=== PATIENT | female | born 1980 | race Caucasian/White ===

== ENCOUNTER 2017-07-25 11:39 | Emergency (ER) | payer OTHER ==
[~2017-07-25] VITALS: Ht 180.3 cm; Wt 108.4 kg
[~2017-07-25 11:39] MED LIST: ALPRAZOLAM0.25 M2 PO; AMOXICILLIN500 MG PO; AUGMENTIN 875-875 MG PO; AUGMENTIN 875875 MG PO; CIPROFLOXACIN500 MG PO; CLEOCIN HCL150 MG PO; Carafate1 GM/10 ML PO; DELTASONE20 M1 PO; FLEXERIL10 MG PO; FLONASE 0.05% 121 EA NAS; HYDROCORTISONE30 G2 T; KENALOG 0.1%80 GM PO; NAPROSYN500 MG PO; NAPROXEN500 MG PO; NKHM; OCUFLOX 0.3% 5 M5 ML OT; TORADOL10 MG PO; TRAMADOL HCL50 MG PO; ULTRAM50 MG PO; ZANTAC 150150 MG PO; ZITHROMAX Z PA250 MG PO; ZITHROMAX250 MG PO
[2017-07-25 11:54] VITALS: BP 140/85
[2017-07-25] MEDS ORDERED: AMOXICILLIN500 M2 PO (12:18)
== END 2017-07-25 13:07 | disposition home or self-care (01) ==
LOC: ED 11:39
DX: H66.92 Otitis media, unspecified, left ear (principal); R51 Headache; Z98.51 Tubal ligation status; Z98.890 Other specified postprocedural states; Z79.899 Other long term (current) drug therapy; Z88.5 Allergy status to narcotic agent; Z91.013 Allergy to seafood

== ENCOUNTER 2017-09-13 16:55 | Emergency (ER) | payer OTHER ==
[~2017-09-13] VITALS: Ht 180.3 cm; Wt 109.8 kg
[~2017-09-13 16:55] MED LIST changes: +AMOXICILLIN500 M2 PO
[2017-09-13 17:39] LABS: BILIRUBIN NEGATIVE (NEGATIVE); BLOOD NEGATIVE (NEGATIVE); CLARITY CLEAR (CLEAR); COLOR YELLOW (YELLOW); GLUCOSE NEGATIVE (NEGATIVE); KETONE NEGATIVE (NEGATIVE); LEUKO ESTERASE NEGATIVE (NEGATIVE); NITRITE NEGATIVE (NEGATIVE); PH 5.5 (5.0-9.0); SPECIFIC GRAVITY <= 1.005 (1.005-1.030); UROBILINOGEN 0.2 E.U./dl (0.2-1.0)
[2017-09-13 17:53] LABS: BACTERIA TRACE; RBC 0-2 rbc/hpf (0-2)
[2017-09-13 18:08] LABS: BASO % 0.4 % (0.0-1.0); EOS # 0.2 10*3/uL (0.0-0.4); EOS % 2.9 % (1.0-4.0); HEMOGLOBIN 14.1 g/dl (12.0-16.0); LYMPH # 1.9 10*3/uL (1.3-4.4); LYMPH % 23.7 % (27.0-41.0); MEAN CELL VOLUME 88.7 fl (81.0-99.0); MEAN CORPUSCULAR HGB 30.5 pg (27.0-31.0); MEAN CORPUSCULAR HGB CONC 34.4 g/dl (33.0-37.0); MEAN PLATELET VOLUME 9.7 fl (9.6-12.3); MONO # 0.5 10*3/uL (0.1-1.0); MONO % 5.8 % (3.0-9.0); NEUT # 5.3 10*3/uL (2.3-7.9); NEUT % 66.9 % (47.0-73.0); PLATELET COUNT AUTOMATED 229 10*3/uL (130-400); RED BLOOD COUNT 4.62 10*6/uL (4.10-5.10); RED CELL DISTRI WIDTH 11.3 % (0-14.5)
[2017-09-13 18:22] LABS: ALKALINE PHOSPHATASE 80 U/L (45-117); BUN 14 mg/dl (7-24); CHLORIDE 104 mmol/L (98-107); CREATININE 0.85 mg/dL (0.55-1.02); SGOT/AST 11 IU/L (3-35); SGPT/ALT 17 U/L (12-78); SODIUM 136 mmol/L (136-145); TOTAL PROTEIN 7.4 gm/dL (6.4-8.2)
[2017-09-13 19:00] VITALS: BP 136/90
== END 2017-09-13 19:01 | disposition home or self-care (01) ==
LOC: ED 16:55
PROVIDERS: Emergency Medicine
DX: I73.00 Raynaud's syndrome without gangrene (principal); G43.909 Migraine, unspecified, not intractable, without status migrainosus; Z98.51 Tubal ligation status; Z98.890 Other specified postprocedural states; Z79.899 Other long term (current) drug therapy; Z88.5 Allergy status to narcotic agent; Z91.013 Allergy to seafood

== ENCOUNTER 2018-06-16 11:47 | Emergency (ER) | payer SELFPAY ==
[~2018-06-16] VITALS: Ht 180.3 cm; Wt 118.8 kg
[2018-06-16 12:35] LABS: BILIRUBIN NEGATIVE (NEGATIVE); BLOOD NEGATIVE (NEGATIVE); CLARITY SL CLOUDY (CLEAR); COLOR YELLOW (YELLOW); GLUCOSE NEGATIVE (NEGATIVE); KETONE TRACE (NEGATIVE); LEUKO ESTERASE NEGATIVE (NEGATIVE); NITRITE NEGATIVE (NEGATIVE); SPECIFIC GRAVITY >= 1.030 (1.005-1.030); UROBILINOGEN 0.2 E.U./dl (0.2-1.0)
[2018-06-16 12:42] LABS: BACTERIA TRACE; MUCOUS 1+
[2018-06-16 12:56] LABS: BASO % 0.3 % (0.0-1.0); EOS # 0.2 10*3/uL (0.0-0.4); EOS % 2.5 % (1.0-4.0); HEMATOCRIT 41.7 % (37.0-47.0); HEMOGLOBIN 14.2 g/dl (12.0-16.0); LYMPH # 1.3 10*3/uL (1.3-4.4); LYMPH % 17.7 % (27.0-41.0); MEAN CELL VOLUME 88.9 fl (81.0-99.0); MEAN CORPUSCULAR HGB 30.3 pg (27.0-31.0); MEAN CORPUSCULAR HGB CONC 34.1 g/dl (33.0-37.0); MEAN PLATELET VOLUME 9.5 fl (9.6-12.3); MONO # 0.4 10*3/uL (0.1-1.0); MONO % 5.3 % (3.0-9.0); NEUT # 5.3 10*3/uL (2.3-7.9); NEUT % 73.9 % (47.0-73.0); PLATELET COUNT AUTOMATED 236 10*3/uL (130-400); RED BLOOD COUNT 4.69 10*6/uL (4.10-5.10); RED CELL DISTRI WIDTH 11.3 % (0-14.5); WHITE BLOOD COUNT 7.2 10*3/uL (4.8-10.8)
[2018-06-16 13:10] LABS: ALBUMIN 3.6 gm/dl (3.1-4.5); ALKALINE PHOSPHATASE 80 U/L (45-117); BUN 8 mg/dl (7-24); CHLORIDE 105 mmol/L (98-107); SGOT/AST 12 IU/L (3-35); SGPT/ALT 22 U/L (12-78); SODIUM 138 mmol/L (136-145)
[2018-06-16 16:32] VITALS: BP 124/73
[2018-06-16] MEDS ORDERED: PERCOCET 10-321 EACH PO (17:13)
== END 2018-06-16 17:18 | disposition home or self-care (01) ==
LOC: ED 11:47
PROVIDERS: Emergency Medicine
DX: R10.31 Right lower quadrant pain (principal); R11.10 Vomiting, unspecified; R68.83 Chills (without fever); Z88.6 Allergy status to analgesic agent; Z91.013 Allergy to seafood; Z79.899 Other long term (current) drug therapy

== ENCOUNTER 2018-06-17 11:47 | Emergency (ER) | payer SELFPAY ==
[~2018-06-17] VITALS: Ht 180.3 cm; Wt 118.8 kg
[~2018-06-17 11:47] MED LIST changes: +PERCOCET 10-321 EACH PO
[2018-06-17 11:49] VITALS: BP 137/90
== END 2018-06-17 14:10 | disposition home or self-care (01) ==
LOC: ED 11:47
DX: R10.2 Pelvic and perineal pain (principal); I73.00 Raynaud's syndrome without gangrene; Z98.51 Tubal ligation status; Z79.899 Other long term (current) drug therapy; Z88.5 Allergy status to narcotic agent; Z91.013 Allergy to seafood

== ENCOUNTER 2019-05-26 23:00 | Emergency (ER) | payer OTHER ==
[~2019-05-26] VITALS: Wt 127.5 kg
[2019-05-26 23:01] VITALS: BP 130/77
[2019-05-26 23:42] LABS: BASO % 0.3 % (0.0-1.0); EOS # 0.3 10*3/uL (0.0-0.4); EOS % 2.9 % (1.0-4.0); HEMATOCRIT 38.9 % (37.0-47.0); HEMOGLOBIN 13.1 g/dl (12.0-16.0); LYMPH # 1.9 10*3/uL (1.3-4.4); LYMPH % 21.7 % (27.0-41.0); MEAN CELL VOLUME 90.3 fl (81.0-99.0); MEAN CORPUSCULAR HGB 30.4 pg (27.0-31.0); MEAN CORPUSCULAR HGB CONC 33.7 g/dl (33.0-37.0); MEAN PLATELET VOLUME 9.6 fl (9.6-12.3); MONO # 0.6 10*3/uL (0.1-1.0); MONO % 7.2 % (3.0-9.0); NEUT % 67.7 % (47.0-73.0); PLATELET COUNT AUTOMATED 239 10*3/uL (130-400); RED BLOOD COUNT 4.31 10*6/uL (4.10-5.10); RED CELL DISTRI WIDTH 11.3 % (0-14.5); WHITE BLOOD COUNT 8.9 10*3/uL (4.8-10.8)
[2019-05-26 23:53] LABS: INTERNATIONAL NORM RATIO 0.9 (2.0-3.5)
[2019-05-27] LABS: ALBUMIN 3.5 gm/dl (3.1-4.5); ALKALINE PHOSPHATASE 90 U/L (45-117); BUN 11 mg/dl (7-24); CHLORIDE 106 mmol/L (98-107); CREATININE 0.75 mg/dL (0.55-1.02); POTASSIUM 3.5 mmol/L (3.5-5.1); SGOT/AST 7 IU/L (3-35); SGPT/ALT 13 U/L (12-78); SODIUM 139 mmol/L (136-145); TOTAL PROTEIN 6.6 gm/dL (6.4-8.2)
[2019-05-27 00:05] LABS: BETA-HCG, QUANT < 1.0 mIU/mL (1-3); TROPONIN I < 0.015 ng/ml (<0.045)
[2019-05-27] MEDS ORDERED: PANTOPRAZOLE SO40 MG PO (00:20)
[2019-05-27] MEDS ORDERED: VERAPAMIL HCL120 M2 PO (00:20)
[2019-05-27] MEDS ORDERED: METOPROLOL SUCC50 M1 PO (00:21)
[2019-05-27] MEDS ORDERED: HYOSCYAMINE0.375 M1 PO (00:21)
== END 2019-05-27 01:30 | disposition home or self-care (01) ==
LOC: ED 23:00
PROVIDERS: Student in an Organized Health Care Education/Training Program
DX: R00.2 Palpitations (principal); F41.9 Anxiety disorder, unspecified; R42 Dizziness and giddiness; R20.0 Anesthesia of skin; R23.2 Flushing; Z79.899 Other long term (current) drug therapy; Z91.013 Allergy to seafood; Z88.6 Allergy status to analgesic agent

== ENCOUNTER 2021-07-07 22:56 | Emergency (ER) | payer OTHER ==
[~2021-07-07] VITALS: Ht 180.3 cm; Wt 113.4 kg
[~2021-07-07 22:56] MED LIST changes: +HYOSCYAMINE0.375 M1 PO; +METOPROLOL SUCC50 M1 PO; +PANTOPRAZOLE SO40 MG PO; +VERAPAMIL HCL120 M2 PO
[2021-07-07 23:27] VITALS: BP 146/99
== END 2021-07-07 23:50 | disposition left against medical advice (07) ==
LOC: ED 22:56
DX: R06.02 Shortness of breath (principal); Z53.21 Procedure and treatment not carried out due to patient leaving prior to being seen by health care provider

== ENCOUNTER 2022-06-03 17:36 | Emergency (ER) | payer OTHER ==
[~2022-06-03] VITALS: Ht 180.3 cm; Wt 131.1 kg
[2022-06-03 17:43] VITALS: BP 135/81
[2022-06-03] MEDS ORDERED: VISTARIL25 MG PO (17:48)
[2022-06-03] MEDS ORDERED: HYDROXYZINE PAM25 M1 PO (17:48)
[2022-06-03] MEDS ORDERED: PHENTERMINE H37.5 M1 PO (17:48)
== END 2022-06-03 19:33 | disposition home or self-care (01) ==
LOC: ED 17:36
DX: T63.461A Toxic effect of venom of wasps, accidental (unintentional), initial encounter (principal); T78.3XXA Angioneurotic edema, initial encounter; Z91.013 Allergy to seafood; Z88.8 Allergy status to other drugs, medicaments and biological substances; Z79.899 Other long term (current) drug therapy; Z98.51 Tubal ligation status; Y92.89 Other specified places as the place of occurrence of the external cause